=== PATIENT | female | born 1985 | race Two or more races ===

== ENCOUNTER 2021-07-08 06:36 | Day surgery (SDC) | payer BC ==
[2021-07-08] MEDS ORDERED: hydrALAZINE 20 MG/ML VIAL SLOW IVP PRN (07:57)
[2021-07-08 08:38] LABS: Creatinine, Urine 31.61 mg/dL (47-110); Protein, Urine Random Quant Less than 10 mg/dL (1-14)
[2021-07-08 09:19] LABS: #Eosinphils 0.1 10x3/uL (0.0-0.5); #Monocytes 0.5 10x3/uL (0.0-1.1); #Neutrophils 5.1 10x3/uL (1.5-8.4); %Basophils 0.1 % (0.0-2.0); %Eosinophils 0.9 % (0.0-6.0); %Monocytes 6.1 % (0.0-10.0); %Neutrophils 65.1 % (40.0-75.0); Mean Corpuscular HGB CONC 35.2 g/dL (32.0-36.0); Mean Corpuscular Hemoglobin 30.5 pg (27.0-33.0); Mean Corpuscular Volume 86.8 fl (81.6-98.3); Mean Platelet Volume 10.1 fl (7.4-10.4); Platelet Count 227 10x3/uL (150-450); RBC Distribution Width 13.6 % (11.5-14.5); Red Blood Cell (RBC) Count 3.93 10x6/uL (3.90-5.03); White Blood Cell (WBC) Count 7.8 10x3/uL (3.5-10.5)
[2021-07-08 09:32] LABS: ALT (SGPT) 23 U/L (8-55); AST (SGOT) 19 U/L (5-34); Albumin 3.1 g/dL (3.5-5.0); Alkaline Phosphatase 142 U/L (40-110); Anion Gap 16 mmol/L (10-20); BUN (Urea Nitrogen) 5 mg/dL (7.0-18.7); Bilirubin, Total 0.3 mg/dL (0.2-1.2); Calc. Creatinine Clearance 0 mL/min (70-130); Calcium 8.8 mg/dL (7.8-10.44); Carbon Dioxide 17 mmol/L (22-29); Chloride 109 mmol/L (98-107); Globulin 2.9 g/dL (2.4-3.5); Glucose 89 mg/dL (70-105); Potassium 3.8 mmol/L (3.5-5.1); Sodium 138 mmol/L (136-145)
== END 2021-07-08 10:25 | disposition home health service (06) ==
LOC: CSHLD/OP 06:36
PROVIDERS: ATTEND Obstetrics & Gynecology
DX: O99.891 Other specified diseases and conditions complicating pregnancy (principal); O47.03 False labor before 37 completed weeks of gestation, third trimester; O09.523 Supervision of elderly multigravida, third trimester; R03.0 Elevated blood-pressure reading, without diagnosis of hypertension; Z3A.36 36 weeks gestation of pregnancy; Z87.59 Personal history of other complications of pregnancy, childbirth and the puerperium; Z79.82 Long term (current) use of aspirin; Z79.899 Other long term (current) drug therapy
CPT/HCPCS: 36415; 80053; 82570; 84156; 85025

== ENCOUNTER 2021-07-28 10:01 | Day surgery (SDC) | payer BC ==
[2021-07-28] MEDS ORDERED: hydrALAZINE 20 MG/ML VIAL SLOW IVP PRN (10:32)
[2021-07-28 10:38] VITALS: BMI 31.7
[2021-07-28 11:15] LABS: #Eosinphils 0.1 10x3/uL (0.0-0.5); #Monocytes 0.5 10x3/uL (0.0-1.1); #Neutrophils 4.8 10x3/uL (1.5-8.4); %Basophils 0.3 % (0.0-2.0); %Eosinophils 1.1 % (0.0-6.0); %Lymphocytes 25.9 % (18.0-47.0); %Monocytes 6.4 % (0.0-10.0); %Neutrophils 65.6 % (40.0-75.0); Hemoglobin 12.2 g/dL (12.0-15.5); Mean Corpuscular HGB CONC 35.8 g/dL (32.0-36.0); Mean Corpuscular Hemoglobin 30.4 pg (27.0-33.0); Mean Platelet Volume 10.1 fl (7.4-10.4); Platelet Count 207 10x3/uL (150-450); RBC Distribution Width 14.3 % (11.5-14.5); Red Blood Cell (RBC) Count 4.01 10x6/uL (3.90-5.03); White Blood Cell (WBC) Count 7.4 10x3/uL (3.5-10.5)
[2021-07-28 11:43] LABS: ALT (SGPT) 15 U/L (8-55); AST (SGOT) 14 U/L (5-34); Albumin 3.1 g/dL (3.5-5.0); Alkaline Phosphatase 160 U/L (40-110); Anion Gap 13 mmol/L (10-20); BUN (Urea Nitrogen) 7 mg/dL (7.0-18.7); Bilirubin, Total 0.3 mg/dL (0.2-1.2); Calc. Creatinine Clearance 191 mL/min (70-130); Calcium 9.3 mg/dL (7.8-10.44); Carbon Dioxide 21 mmol/L (22-29); Chloride 107 mmol/L (98-107); Globulin 3.4 g/dL (2.4-3.5); Glucose 92 mg/dL (70-105); Potassium 3.5 mmol/L (3.5-5.1); Protein, Total 6.5 g/dL (6.0-8.3); Sodium 137 mmol/L (136-145)
[2021-07-28 12:54] LABS: Creatinine, Urine 33.68 mg/dL (47-110); Protein, Urine Random Quant Less than 10 mg/dL (1-14)
== END 2021-07-28 13:26 | disposition home or self-care (01) ==
LOC: CSHLD/OP 10:01
PROVIDERS: ATTEND Obstetrics & Gynecology
DX: O47.1 False labor at or after 37 completed weeks of gestation (principal); O09.523 Supervision of elderly multigravida, third trimester; Z3A.38 38 weeks gestation of pregnancy; Z79.82 Long term (current) use of aspirin
CPT/HCPCS: 80053; 82570; 84156; 85025; 99284

== ENCOUNTER 2021-08-01 04:24 | Inpatient (IN) | payer BC ==
[2021-08-01 05:27] VITALS: BMI 30.7
[2021-08-01] MEDS ORDERED: Lidocaine 1% (PF) 30 ML VIAL SC PRN (06:46)
[2021-08-01] MEDS ORDERED: Carboprost 250 MCG/ML AMP IM PRN (06:46)
[2021-08-01] MEDS ORDERED: Butorphanol Tartrate 1 MG/ML VIAL SLOW IVP PRN (06:46)
[2021-08-01] MEDS ORDERED: Ibuprofen 800 MG TAB PO PRN (06:46)
[2021-08-01] MEDS ORDERED: hydrALAZINE 20 MG/ML VIAL SLOW IVP PRN ×2 (06:46→13:16)
[2021-08-01] MEDS ORDERED: Zolpidem Tartrate 5 MG TAB PO PRN (06:46)
[2021-08-01] MEDS ORDERED: Methylergonovine 0.2 MG/ML VIAL IM PRN (06:46)
[2021-08-01] MEDS ORDERED: Ondansetron PF 4 MG/2 ML Vial IVP PRN ×3 (06:46→13:16)
[2021-08-01] MEDS ORDERED: Promethazine HCl 25 MG/ML VIAL IM PRN ×2 (06:46→08:57)
[2021-08-01] MEDS ORDERED: Misoprostol 200 MCG TAB PR PRN (06:46)
[2021-08-01] MEDS ORDERED: NS w/ Oxytocin 30 units 500 ML IV SCH ×2 (07:00)
[2021-08-01] MEDS: Lactated Ringer's 1,000 ML IV SCH ×2 (07:04→08:00)
[2021-08-01 07:12] LABS: Hemoglobin 12.5 g/dL (12.0-15.5); Mean Corpuscular HGB CONC 35.1 g/dL (32.0-36.0); Mean Corpuscular Hemoglobin 29.8 pg (27.0-33.0); Mean Platelet Volume 10.3 fl (7.4-10.4); Platelet Count 226 10x3/uL (150-450); RBC Distribution Width 14.3 % (11.5-14.5); Red Blood Cell (RBC) Count 4.19 10x6/uL (3.90-5.03)
[2021-08-01] MEDS ORDERED: Fentanyl 2 mcg/Bup 0.1% Cadd 100 ML ONE (07:19)
[2021-08-01 07:47] LABS: Hep B Surf Ag Non-Reactive S/CO (NonReactive)
[2021-08-01 07:49] LABS: Syphilis Antibody Nonreactive (Nonreactive)
[2021-08-01 08:40] LABS: SARS-CoV-2 NAA Rapid Test Not Detected (NotDetected)
[2021-08-01] MEDS ORDERED: Naloxone HCl 0.4 mg/ml Vial IVP PRN ×2 (08:57)
[2021-08-01] MEDS ORDERED: ePHEDrine Sulfate 50 MG/10 ML VIAL SLOW IVP PRN (08:57)
[2021-08-01] MEDS ORDERED: Acetaminophen 325 MG TAB PO PRN (08:57)
[2021-08-01] MEDS ORDERED: Hydrocerin (Eucerin) Cream 120 gm Jar TOP PRN (08:57)
[2021-08-01] MEDS ORDERED: diphenhydrAMINE 50 MG/ML VIAL IVP PRN (08:57)
[2021-08-01] MEDS ORDERED: Lactated Ringer's 500 ML IV PRN (08:57)
[2021-08-01] MEDS ORDERED: Fentanyl 2 mcg/Bupivacaine 0.1% Cassette 100 ML EPIDURAL SCH (09:00)
[2021-08-01] MEDS ORDERED: Communication Order-Pharmacy FS SCH (09:00)
[2021-08-01] MEDS ORDERED: Milk Of Magnesia 30 ML UDCUP PO PRN (13:16)
[2021-08-01] MEDS ORDERED: Boostrix 0.5 ML (Tdap) VIAL IM ONE (13:16)
[2021-08-01] MEDS ORDERED: Bisacodyl 10 MG SUPP PR PRN (13:16)
[2021-08-01] MEDS ORDERED: Benzocaine-Menthol 82.5 ML CAN TOP PRN (13:16)
[2021-08-01] MEDS ORDERED: diphenhydrAMINE 25 MG CAP PO PRN (13:16)
[2021-08-01] MEDS ORDERED: HYDROcodone/Acetaminophen 5/325 mg Tablet PO PRN ×2 (13:16)
[2021-08-01] MEDS ORDERED: Lanolin Ointment 7 GM TUBE TOP PRN (13:16)
[2021-08-01] MEDS: Ibuprofen 800 MG TAB PO SCH ×2 (13:59→21:39)
[2021-08-01] MEDS: Ferrous Sulfate 325 MG TAB PO SCH (14:10)
[2021-08-01] MEDS: Docusate Calcium (SURFAK) 240 MG CAP PO SCH (21:39)
[2021-08-02] MEDS: Ibuprofen 800 MG TAB PO SCH ×2 (06:03→14:07)
[2021-08-02 07:21] VITALS: BP 137/83; TEMP 98.2
[2021-08-02] MEDS: Ferrous Sulfate 325 MG TAB PO SCH (07:34)
[2021-08-02] MEDS: Docusate Calcium (SURFAK) 240 MG CAP PO SCH (07:57)
[2021-08-02] MEDS ORDERED: Prenatal Vitamin 1 TAB PO SCH (09:00)
== END 2021-08-02 15:19 | disposition home or self-care (01) | DRG 807 ==
LOC: CSHLD/OP 04:24 → CSHLD 07:33 → CSHPED 13:32
PROVIDERS: ADMIT Obstetrics & Gynecology; ATTEND Obstetrics & Gynecology
PROC: 10E0XZZ Delivery of Products of Conception, External Approach (ICD-10-PCS; principal; 2021-08-01)
PROC: 3E0334Z Introduction of Serum, Toxoid and Vaccine into Peripheral Vein, Percutaneous Approach (ICD-10-PCS; 2021-08-01)
PROC: 0UQMXZZ Repair Vulva, External Approach (ICD-10-PCS; 2021-08-01)
DX: O71.82 Other specified trauma to perineum and vulva (principal); Z37.0 Single live birth; Z3A.39 39 weeks gestation of pregnancy; Z20.822 Contact with and (suspected) exposure to COVID-19; O69.81X0 Labor and delivery complicated by cord around neck, without compression, not applicable or unspecified; Z67.41 Type O blood, Rh negative
CPT/HCPCS: 36415; 85027; 85461; 86780; 86850; 86870; 86900; 86901; 87340; 90384; 96372; J7120; U0002